=== PATIENT | female | born 1960 | race Caucasian/White ===

== ENCOUNTER 2017-10-30 16:20 | Inpatient (IN) | payer MEDICARE ==
[~2017-10-30] VITALS: Ht 165.1 cm; Wt 84.1 kg
--- NOTE | ~2017-10-30 | EC ---
PATIENT:SHASTA HANSEN DATE OF SERVICE: 10/30/17 SEX: F MEDICAL RECORD: [id number] DATE OF : 58 LOCATION:D. D.213 AGE OF PATIENT: 57 ADMISSION DATE: 10/30/17 REFERRING PHYSICIAN: INTERPRETING PHYSICIAN: JESUS LOPEZ MD ECHOCARDIOGRAM REPORT ECHO CHARGES 4 ECHO COMPLETE Date: 10/31 CLINICAL DIAGNOSIS: CHF ECHOCARDIOGRAPHIC MEASUREMENTS (adult normal given) AC root (d.<3.7cm) 2.8 cm LV Septum d (<1.2 cm> 1.2 cm Valve Excursion 1.7 cm LV Septum (systole) 1.3 cm Left Atria (s.<4.0cm> 3.7 cm LVPW d(<1.2cm) 1.4 cm RV (d.<2.3cm) 4.1 cm LVPW (sytole) 1.6 cm LV diastole(<5.6CM) 4.0 cm MV E-F(>70mm/sec) cm LV systole 3.0 cm LVOT Diameter 1.8 cm MV exc.(>10mm) 1.2 cm Est.ejection fraction (50-75%) % DOPPLER: LVIT cm/sec A 81.0 cm/sec E 67.0 cm/sec LA cm/sec RVSP 27 mmHg LVOT 138 cm/sec AOP1/2T m/s Asc. Ao 191 cm/sec RVOT 117 cm/sec RA cm/sec PA 158 cm/sec AV Gradient Peak 14.65mmHg AV Mean 6.84 mmHg AV Area 1.7 cm MV Gradient Peak 3.11 mmHg MV Mean 1.23 mmHg MV Area cm COMMENTS: Database Security Administrator: Carmencita LEMONS Athletic Equipment Custodian: 1 Dr. Lopez TAPE# PACS Pericardial Effusion N DATE OF SERVICE: 10/31/2017 PROCEDURE: Echocardiogram. FINDINGS: 1. Left ventricular chamber size is within normal limits. Left ventricular systolic function is normal. Overall ejection fraction estimated at 60%. 2. Left atrium, right atrium, right ventricle chamber sizes are within normal limits. Left atrium measures 3.7 cm. 3. Valvular structures have normal structure and motion. ECHOCARDIOGRAM REPORT [id number] SHASTA HANSEN 4. Doppler interrogation reveals mild mitral regurgitation, mild tricuspid regurgitation, no other valvular insufficiency or stenosis. Pulmonary systolic pressure is normal estimated at 27 mmHg. 5. No evidence of pericardial effusion or left ventricular thrombus. TRANSINT:[id number] Voice Confirmation ID: [id number] DOCUMENT ID: [id number] JESUS LOPEZ MD at 1834 CC: [id number] DICTATION DATE: 10/31/17 1406 VENEER MEASURER: 10/31/17 1410 ADM IN [place] [id number] [place] [address]
--- NOTE | ~2017-10-30 | CN ---
PATIENT NAME:SHASTA HANSEN MEDICAL RECORD: [id number] : 58 LOCATION:[facility] D.2136 ADMIT DATE: 10/30/17 ACCOUNT: [id number] CONSULTING PHYSICIAN: ZENY LOPEZ MD REFERRING PHYSICIAN: SUSANNAH HAILE MD DATE OF CONSULTATION: 11/28/2017 IDENTIFYING DATA: The patient is 57 years old, and she is admitted to the hospital secondary to confusion. CHIEF COMPLAINT: None. HISTORY OF PRESENT ILLNESS: The patient has a number of complicated medical problems that include hematochezia, hyponatremia, urinary tract infection, hypokalemia, and anemia. She has been quite confused and has had some behaviors that were atypical, but not threatening, dangerous, or psychotic. She did have confusion consistent with a delirium and that is clearing. The patient tells me that she has lost many relatives to and that she struggled with posttraumatic stress disorder and anxiety for a long time. She has never tried to hurt herself. She has never been hospitalized for psychiatric reasons and she has been in outpatient therapy. She denies a history of substance abuse. MENTAL STATUS EXAMINATION: The patient is awake, alert and oriented to person, place, time and situation. Her mood is anxious. Her affect is constricted. Thought processes are circumstantial. Memory, concentration, and abstraction abilities are moderately impaired. She has no thoughts of harming herself or others and denies psychotic symptoms. ASSESSMENT: 1. Posttraumatic stress disorder. 2. Generalized anxiety disorder. 3. Delirium, resolved. PLAN: At this time, the patient is not showing any acute psychiatric symptoms that would represent a danger to herself or others. She tells me that she does not want any psychiatric medicines or to see another therapist or psychiatrist. I have discussed this with her. I am not sure what her objection is, but that is her feeling at this point and given that she is not out of touch with reality or acutely dangerous, I have no recommendations other than that she be discharged to home once medically stable and I have given her instructions about where to go or who to call if she changes her mind about psychiatric care. TRANSINT:[id number] Voice Confirmation ID: [id number] DOCUMENT ID: [id number] ZENY LOPEZ MD at 1435 CC: [id number] DICTATION DATE: 11/28/17 1329 ACCOUNT RECEIVABLE ASSOCIATE: 11/28/17 1339 DIS IN 11/29/17 [place] [id number] [place] [id number]
[2017-10-30] MEDS ORDERED: VENTOLIN HFA18 GM INH (16:35)
[2017-10-30] MEDS ORDERED: XANAX0.5 MG PO (16:35)
[2017-10-30] MEDS ORDERED: PROTONIX40 MG PO (16:35)
[2017-10-30] MEDS ORDERED: SINGULAIR10 MG PO (16:36)
[2017-10-30] MEDS ORDERED: CARAFATE1 G PO (16:36)
[2017-10-30] MEDS ORDERED: ZANTAC150 MG PO (16:36)
[2017-10-30] MEDS ORDERED: ASCORBIC ACID500 MG PO (16:36)
[2017-10-30] MEDS ORDERED: CALCIUM 600 +1 EAC3 PO (16:37)
[2017-10-30] MEDS ORDERED: VITAMIN B-12500 MC1 PO (16:37)
[2017-10-30] MEDS ORDERED: MAG-OX 400 MG400 MG PO (16:37)
[2017-10-30] MEDS ORDERED: VITAMIN D2000 UNIT PO (16:38)
[2017-10-30] MEDS ORDERED: KRILL OIL 1,001 EAC1 PO (16:38)
[2017-10-30] MEDS ORDERED: VITAMIN E400 UNI2 PO (16:38)
[2017-10-30] MEDS ORDERED: PROBIOTIC1 EAC1 PO (16:39)
[2017-10-30 17:14] LABS: APTT 33.2 SECONDS (22.8-39.4); INR 1.28 (0.85-1.17); PROTIME 15.6 SECONDS (11.6-15.0)
[2017-10-30 17:15] LABS: D-DIMER-QUANTITATIVE 1.77 ug/mLFEU (0.20-0.54)
[2017-10-30 17:18] LABS: BASOPHILS 0.1 % (0-2); EOSINOPHILS 0.6 % (0-7); HEMATOCRIT 30.3 % (36.0-48.0); HEMOGLOBIN 10.6 g/dL (12-16); IMMATURE GRANULOCYTES 2.7 % (0-5); LYMPHOCYTES 17.1 % (15-50); MCH 31.3 pg (26.0-34.0); MCV 89.4 fL (80.0-100.0); MEAN PLATELET VOLUME 8.7 fL (7.4-10.4); MONOCYTES 8.9 % (2-11); NEUTROPHILS 70.6 % (40-80); PLATELET COUNT 346 10x3/uL (130-400); RBC 3.39 10x6/uL (4.00-5.40); RDW 14.4 % (11.5-14.5); WBC 10.6 10x3/uL (4.8-10.8)
[2017-10-30 17:21] LABS: ALBUMIN 1.6 g/dL (3.4-5.0); ALKALINE PHOSPHATASE 86 U/L (46-116); ALT (SGPT) 23 U/L (10-68); CALC OSMOLALITY 246 mosm/kg (275-300); CALCIUM 7.5 mg/dL (8.5-10.1); CARBON DIOXIDE 22.4 mmol/L (21.0-32.0); CHLORIDE - SERUM 92 mmol/L (98-107); GLUCOSE 94 mg/dL (74-106); POTASSIUM - SERUM 3.8 mmol/L (3.5-5.1); PROTEIN - SERUM 5.3 g/dL (6.4-8.2); SODIUM 123 mmol/L (136-145); UREA NITROGEN 11 mg/dL (7-18); eGFR NON AFRICAN AMERICAN 60 mL/min (90-120)
[2017-10-30 17:32] LABS: CREATINE KINASE 86 UL (21-215); PRO BNP 196 pg/mL (0-125)
[2017-10-30 17:34] LABS: TROPONIN-I < 0.017 ng/mL (0.000-0.060)
[2017-10-30 19:18] VITALS: BP 115/52
[2017-10-30 20:31] VITALS: BP 110/59
[2017-10-30 21:31] VITALS: BP 108/61
[2017-10-30 21:34] LABS: APPEARANCE CLOUDY (CLEAR); BILIRUBIN NEGATIVE (NEGATIVE); COLOR YELLOW (YELLOW); GLUCOSE NEGATIVE (NEGATIVE); KETONE NEGATIVE (NEGATIVE); NITRITE POSITIVE (NEGATIVE); PROTEIN TRACE mg/dL (NEGATIVE); UROBILINOGEN NORMAL (NORMAL)
[2017-10-30 21:35] LABS: RED CELLS - URINE 0-5 /hpf (0-5); WHITE CELLS - URINE 0-5 /hpf (0-5)
[2017-10-30 21:36] LABS: BACTERIA MODERATE /hpf (NONE SEEN)
[2017-10-30 22:30] VITALS: BP 98/51
[2017-10-30 22:31] VITALS: BP 118/53
[2017-10-31] VITALS (7 sets, daily range): BP systolic 100–144; BP diastolic 34–72; BMI 37.3; BMI 37.2
[2017-10-31 06:18] LABS: ANION GAP 11.6 mmol/L (8-16); CARBON DIOXIDE 22.7 mmol/L (21.0-32.0); POTASSIUM - SERUM 3.3 mmol/L (3.5-5.1)
[2017-10-31 06:31] LABS: BASOPHILS 0.1 % (0-2); EOSINOPHILS 0.7 % (0-7); HEMATOCRIT 27.8 % (36.0-48.0); HEMOGLOBIN 9.7 g/dL (12-16); IMMATURE GRANULOCYTES 1.8 % (0-5); LYMPHOCYTES 16.9 % (15-50); MCH 31.4 pg (26.0-34.0); MCHC 34.9 g/dL (31.0-37.0); MEAN PLATELET VOLUME 8.9 fL (7.4-10.4); MONOCYTES 10.7 % (2-11); NEUTROPHILS 69.8 % (40-80); PLATELET COUNT 313 10x3/uL (130-400); RBC 3.09 10x6/uL (4.00-5.40); RDW 14.6 % (11.5-14.5); WBC 9.7 10x3/uL (4.8-10.8)
[2017-10-31 10:48] LABS: % SATURATION 23 % (15-55); IRON 17 ug/dl (35-150); TOTAL IRON BIND CAPACITY 71 ug/dl (260-445)
[2017-10-31 10:50] LABS: UNSAT IRON BIND CAPACITY 54 ug/dl (150-375)
[2017-10-31 11:02] LABS: MAGNESIUM - SERUM 1.6 mg/dL (1.8-2.4)
[2017-11-01 05:34] VITALS: BP 110/59
[2017-11-01 05:49] LABS: CARBON DIOXIDE 24.6 mmol/L (21.0-32.0); CREATININE - SERUM 0.9 mg/dL (0.6-1.3)
[2017-11-01 05:59] LABS: BASOPHILS 0.1 % (0-2); EOSINOPHILS 0.6 % (0-7); HEMATOCRIT 28.3 % (36.0-48.0); HEMOGLOBIN 9.9 g/dL (12-16); IMMATURE GRANULOCYTES 4.5 % (0-5); MCH 31.5 pg (26.0-34.0); MCV 90.1 fL (80.0-100.0); MEAN PLATELET VOLUME 8.7 fL (7.4-10.4); MONOCYTES 7.5 % (2-11); NEUTROPHILS 73.3 % (40-80); PLATELET COUNT 291 10x3/uL (130-400); RBC 3.14 10x6/uL (4.00-5.40); RDW 14.8 % (11.5-14.5)
[2017-11-01 06:10] LABS: ANION GAP 9.3 mmol/L (8-16)
[2017-11-01 06:12] LABS: CALCIUM 6.9 mg/dL (8.5-10.1); POTASSIUM - SERUM 2.9 mmol/L (3.5-5.1)
[2017-11-01 08:21] LABS: FOLATE (FOLIC ACID) - SERUM 12.2 ng/mL (>3.0)
[2017-11-01 08:26] VITALS: BP 98/55
[2017-11-01 11:35] VITALS: BP 105/49
[2017-11-01 16:00] VITALS: BP 91/65
[2017-11-01 20:00] VITALS: BP 85/45
[2017-11-02] VITALS: BP 91/38
[2017-11-02 04:00] VITALS: BP 85/61
[2017-11-02 05:47] LABS: BASOPHILS 0.2 % (0-2); EOSINOPHILS 0.5 % (0-7); HEMATOCRIT 25.2 % (36.0-48.0); HEMOGLOBIN 8.5 g/dL (12-16); IMMATURE GRANULOCYTES 2.7 % (0-5); LYMPHOCYTES 15.2 % (15-50); MCH 30.6 pg (26.0-34.0); MCHC 33.7 g/dL (31.0-37.0); MCV 90.6 fL (80.0-100.0); MEAN PLATELET VOLUME 8.5 fL (7.4-10.4); MONOCYTES 6.8 % (2-11); NEUTROPHILS 74.6 % (40-80); RBC 2.78 10x6/uL (4.00-5.40); RDW 14.9 % (11.5-14.5); WBC 6.7 10x3/uL (4.8-10.8)
[2017-11-02 05:49] LABS: PLATELET COUNT 221 10x3/uL (130-400)
[2017-11-02 06:03] LABS: CARBON DIOXIDE 28.4 mmol/L (21.0-32.0); CREATININE - SERUM 0.9 mg/dL (0.6-1.3)
[2017-11-02 06:04] LABS: POTASSIUM - SERUM 2.4 mmol/L (3.5-5.1)
[2017-11-02 06:05] LABS: CALCIUM 6.7 mg/dL (8.5-10.1)
[2017-11-02 08:40] VITALS: BP 96/58
[2017-11-02 11:52] VITALS: BP 97/58
[2017-11-02 15:23] VITALS: BP 92/50
[2017-11-02 16:27] LABS: MAGNESIUM - SERUM 1.5 mg/dL (1.8-2.4)
[2017-11-02 16:39] LABS: POTASSIUM - SERUM 2.7 mmol/L (3.5-5.1)
[2017-11-02 17:30] LABS: CREATININE - URINE 4.9 mg/dL (30-125); PROTEIN - URINE 4.8 mg/dL (0.0-11.9)
[2017-11-02 20:00] VITALS: BP 134/47
[2017-11-03] VITALS: BP 144/56
[2017-11-03 04:00] VITALS: BP 98/54
[2017-11-03 06:15] LABS: BASOPHILS 0.2 % (0-2); EOSINOPHILS 0.8 % (0-7); HEMATOCRIT 24.4 % (36.0-48.0); HEMOGLOBIN 8.4 g/dL (12-16); IMMATURE GRANULOCYTES 2.7 % (0-5); LYMPHOCYTES 18.8 % (15-50); MCH 31.1 pg (26.0-34.0); MCHC 34.4 g/dL (31.0-37.0); MCV 90.4 fL (80.0-100.0); MEAN PLATELET VOLUME 8.5 fL (7.4-10.4); MONOCYTES 6.1 % (2-11); NEUTROPHILS 71.4 % (40-80); RDW 15.1 % (11.5-14.5)
[2017-11-03 06:17] LABS: PLATELET COUNT 160 10x3/uL (130-400); WBC 4.7 10x3/uL (4.8-10.8)
[2017-11-03 06:34] LABS: CALC OSMOLALITY 257 mosm/kg (275-300); CARBON DIOXIDE 29.6 mmol/L (21.0-32.0); CHLORIDE - SERUM 95 mmol/L (98-107); CREATININE - SERUM 0.7 mg/dL (0.6-1.3); GLUCOSE 106 mg/dL (74-106); SODIUM 130 mmol/L (136-145); UREA NITROGEN 4 mg/dL (7-18); eGFR NON AFRICAN AMERICAN > 90 mL/min (90-120)
[2017-11-03 06:39] LABS: CALCIUM 6.7 mg/dL (8.5-10.1); POTASSIUM - SERUM 2.7 mmol/L (3.5-5.1)
[2017-11-03 08:55] VITALS: BP 91/59
[2017-11-03 13:20] VITALS: BP 102/58
[2017-11-03 16:50] VITALS: BP 95/62
[2017-11-03 21:17] VITALS: BP 85/48
[2017-11-04 00:28] VITALS: BP 101/53
[2017-11-04 04:07] VITALS: BP 92/43
[2017-11-04 05:36] LABS: BASOPHILS 0.4 % (0-2); EOSINOPHILS 0.8 % (0-7); HEMATOCRIT 23.8 % (36.0-48.0); HEMOGLOBIN 8.1 g/dL (12-16); IMMATURE GRANULOCYTES 2.3 % (0-5); LYMPHOCYTES 20.5 % (15-50); MCV 91.2 fL (80.0-100.0); MEAN PLATELET VOLUME 8.8 fL (7.4-10.4); MONOCYTES 6.9 % (2-11); NEUTROPHILS 69.1 % (40-80); PLATELET COUNT 148 10x3/uL (130-400); RBC 2.61 10x6/uL (4.00-5.40); RDW 15.2 % (11.5-14.5); WBC 4.8 10x3/uL (4.8-10.8)
[2017-11-04 05:48] LABS: CALC OSMOLALITY 259 mosm/kg (275-300); CARBON DIOXIDE 30.8 mmol/L (21.0-32.0); CHLORIDE - SERUM 95 mmol/L (98-107); CREATININE - SERUM 0.7 mg/dL (0.6-1.3); GLUCOSE 101 mg/dL (74-106); SODIUM 131 mmol/L (136-145); UREA NITROGEN 3 mg/dL (7-18); eGFR NON AFRICAN AMERICAN > 90 mL/min (90-120)
[2017-11-04 05:50] LABS: POTASSIUM - SERUM 2.8 mmol/L (3.5-5.1)
[2017-11-04 07:00] VITALS: BP 97/57
[2017-11-04 18:09] LABS: OVA + PARASITE EXAM Final report (())
[2017-11-04 21:56] VITALS: BP 98/52
[2017-11-05 05:42] VITALS: BP 95/59
[2017-11-05 05:44] LABS: BASOPHILS 0.3 % (0-2); EOSINOPHILS 1.4 % (0-7); HEMATOCRIT 24.7 % (36.0-48.0); HEMOGLOBIN 8.4 g/dL (12-16); IMMATURE GRANULOCYTES 1.4 % (0-5); MCH 31.3 pg (26.0-34.0); MCV 92.2 fL (80.0-100.0); MEAN PLATELET VOLUME 8.7 fL (7.4-10.4); NEUTROPHILS 65.9 % (40-80); PLATELET COUNT 120 10x3/uL (130-400); RBC 2.68 10x6/uL (4.00-5.40); RDW 15.5 % (11.5-14.5); WBC 5.8 10x3/uL (4.8-10.8)
[2017-11-05 06:01] LABS: CALC OSMOLALITY 259 mosm/kg (275-300); CALCIUM 7.1 mg/dL (8.5-10.1); CARBON DIOXIDE 29.9 mmol/L (21.0-32.0); CHLORIDE - SERUM 98 mmol/L (98-107); CREATININE - SERUM 0.7 mg/dL (0.6-1.3); GLUCOSE 99 mg/dL (74-106); SODIUM 131 mmol/L (136-145); UREA NITROGEN 3 mg/dL (7-18); eGFR NON AFRICAN AMERICAN > 90 mL/min (90-120)
[2017-11-05 06:12] LABS: POTASSIUM - SERUM 3.6 mmol/L (3.5-5.1)
[2017-11-05 08:47] VITALS: BP 102/65
[2017-11-05 11:26] VITALS: BP 85/56
[2017-11-05 15:10] VITALS: BP 100/58
[2017-11-05 20:00] VITALS: BP 102/57
[2017-11-06] VITALS: BP 88/50
[2017-11-06 04:00] VITALS: BP 117/90
[2017-11-06 09:34] VITALS: BP 99/45
[2017-11-06 10:03] LABS: BASOPHILS 0.7 % (0-2); EOSINOPHILS 1.3 % (0-7); HEMATOCRIT 24.7 % (36.0-48.0); HEMOGLOBIN 8.3 g/dL (12-16); IMMATURE GRANULOCYTES 1.8 % (0-5); LYMPHOCYTES 34.2 % (15-50); MCH 31.4 pg (26.0-34.0); MCHC 33.6 g/dL (31.0-37.0); MCV 93.6 fL (80.0-100.0); MEAN PLATELET VOLUME 8.7 fL (7.4-10.4); MONOCYTES 8.4 % (2-11); NEUTROPHILS 53.6 % (40-80); PLATELET COUNT 117 10x3/uL (130-400); RBC 2.64 10x6/uL (4.00-5.40); RDW 15.5 % (11.5-14.5); WBC 5.5 10x3/uL (4.8-10.8)
[2017-11-06 10:18] LABS: ANION GAP 6.6 mmol/L (8-16); BILIRUBIN - TOTAL 0.32 mg/dL (0.2-1.3); CALCIUM 7.1 mg/dL (8.5-10.1); CARBON DIOXIDE 32.9 mmol/L (21.0-32.0); PROTEIN - SERUM 4.9 g/dL (6.4-8.2)
[2017-11-06 10:33] LABS: POTASSIUM - SERUM 2.5 mmol/L (3.5-5.1)
[2017-11-06 12:55] VITALS: BP 93/55
[2017-11-06 17:51] VITALS: BP 100/53
[2017-11-06 20:37] VITALS: BP 91/42
[2017-11-07 00:16] VITALS: BP 90/69
[2017-11-07 05:37] VITALS: BP 91/49
[2017-11-07 06:12] LABS: BASOPHILS 0.3 % (0-2); EOSINOPHILS 1.5 % (0-7); HEMATOCRIT 26.1 % (36.0-48.0); HEMOGLOBIN 8.6 g/dL (12-16); IMMATURE GRANULOCYTES 1.8 % (0-5); LYMPHOCYTES 34.5 % (15-50); MCH 30.9 pg (26.0-34.0); MCV 93.9 fL (80.0-100.0); MEAN PLATELET VOLUME 8.9 fL (7.4-10.4); MONOCYTES 7.8 % (2-11); NEUTROPHILS 54.1 % (40-80); RBC 2.78 10x6/uL (4.00-5.40); RDW 15.8 % (11.5-14.5); WBC 6.6 10x3/uL (4.8-10.8)
[2017-11-07 06:21] LABS: PLATELET COUNT 146 10x3/uL (130-400)
[2017-11-07 06:32] LABS: ALBUMIN 2.2 g/dL (3.4-5.0); ALKALINE PHOSPHATASE 191 U/L (46-116); ALT (SGPT) 11 U/L (10-68); BILIRUBIN - TOTAL 0.34 mg/dL (0.2-1.3); CALC OSMOLALITY 260 mosm/kg (275-300); CALCIUM 7.6 mg/dL (8.5-10.1); CARBON DIOXIDE 34.8 mmol/L (21.0-32.0); CHLORIDE - SERUM 96 mmol/L (98-107); GLUCOSE 104 mg/dL (74-106); PROTEIN - SERUM 5.1 g/dL (6.4-8.2); SODIUM 131 mmol/L (136-145); UREA NITROGEN 6 mg/dL (7-18)
[2017-11-07 06:34] LABS: CREATININE - SERUM 0.7 mg/dL (0.6-1.3); eGFR NON AFRICAN AMERICAN > 90 mL/min (90-120)
[2017-11-07 15:24] LABS: OVA + PARASITE EXAM Final report (())
[2017-11-07 15:24] LABS: OVA + PARASITE EXAM Final report (())
[2017-11-07 16:48] VITALS: BP 94/53
[2017-11-07 20:42] VITALS: BP 75/52
[2017-11-08] VITALS (7 sets, daily range): BP systolic 82–111; BP diastolic 46–67
[2017-11-08 05:38] LABS: BASOPHILS 0.7 % (0-2); EOSINOPHILS 4.1 % (0-7); LYMPHOCYTES 43.2 % (15-50); MCH 31.4 pg (26.0-34.0); MCHC 33.3 g/dL (31.0-37.0); MCV 94.2 fL (80.0-100.0); MEAN PLATELET VOLUME 8.7 fL (7.4-10.4); MONOCYTES 10.2 % (2-11); NEUTROPHILS 39.8 % (40-80); PLATELET COUNT 141 10x3/uL (130-400); RBC 2.23 10x6/uL (4.00-5.40); RDW 16.3 % (11.5-14.5)
[2017-11-08 05:43] LABS: WBC 4.6 10x3/uL (4.8-10.8)
[2017-11-08 06:14] LABS: ALBUMIN 1.7 g/dL (3.4-5.0); ALKALINE PHOSPHATASE 145 U/L (46-116); BILIRUBIN - TOTAL 0.24 mg/dL (0.2-1.3); CALCIUM 7.4 mg/dL (8.5-10.1); CARBON DIOXIDE 37.2 mmol/L (21.0-32.0); CHLORIDE - SERUM 100 mmol/L (98-107); CREATININE - SERUM 0.7 mg/dL (0.6-1.3); GLUCOSE 98 mg/dL (74-106); PROTEIN - SERUM 4.4 g/dL (6.4-8.2); SODIUM 134 mmol/L (136-145); eGFR NON AFRICAN AMERICAN > 90 mL/min (90-120)
[2017-11-08 06:15] LABS: ALT (SGPT) 5 U/L (10-68); CALC OSMOLALITY 265 mosm/kg (275-300); POTASSIUM - SERUM 3.3 mmol/L (3.5-5.1); UREA NITROGEN 8 mg/dL (7-18)
[2017-11-08 07:54] LABS: % SATURATION 47 % (15-55); IRON 28 ug/dl (35-150); TOTAL IRON BIND CAPACITY 59 ug/dl (260-445)
[2017-11-08 07:59] LABS: UNSAT IRON BIND CAPACITY 31 ug/dl (150-375)
[2017-11-08 08:06] LABS: ALBUMIN 1.7 g/dL (3.4-5.0); BILIRUBIN - DIRECT 0.06 mg/dL (0.00-0.30); BILIRUBIN - INDIRECT 0.15 mg/dL (0.00-1.00); BILIRUBIN - TOTAL 0.21 mg/dL (0.2-1.3); PROTEIN - SERUM 4.4 g/dL (6.4-8.2)
[2017-11-09 05:45] LABS: BASOPHILS 0.9 % (0-2); EOSINOPHILS 3.3 % (0-7); HEMATOCRIT 24.4 % (36.0-48.0); HEMOGLOBIN 7.9 g/dL (12-16); IMMATURE GRANULOCYTES 3.3 % (0-5); LYMPHOCYTES 43.8 % (15-50); MCH 30.4 pg (26.0-34.0); MCHC 32.4 g/dL (31.0-37.0); MCV 93.8 fL (80.0-100.0); NEUTROPHILS 36.7 % (40-80); PLATELET COUNT 156 10x3/uL (130-400); RDW 17.1 % (11.5-14.5); WBC 5.7 10x3/uL (4.8-10.8)
[2017-11-09 06:15] LABS: ALKALINE PHOSPHATASE 129 U/L (46-116); BILIRUBIN - TOTAL 0.33 mg/dL (0.2-1.3); CALC OSMOLALITY 264 mosm/kg (275-300); CALCIUM 7.3 mg/dL (8.5-10.1); CARBON DIOXIDE 34.4 mmol/L (21.0-32.0); CHLORIDE - SERUM 99 mmol/L (98-107); CREATININE - SERUM 0.7 mg/dL (0.6-1.3); GLUCOSE 92 mg/dL (74-106); PROTEIN - SERUM 4.4 g/dL (6.4-8.2); SODIUM 133 mmol/L (136-145); UREA NITROGEN 9 mg/dL (7-18); eGFR NON AFRICAN AMERICAN > 90 mL/min (90-120)
[2017-11-09 06:16] LABS: ALT (SGPT) 13 U/L (10-68)
[2017-11-09 06:30] VITALS: BP 104/60
[2017-11-09 07:23] LABS: FOLATE (FOLIC ACID) - SERUM 7.8 ng/mL (>3.0)
[2017-11-09 07:32] LABS: INR 1.32 (0.85-1.17); PROTIME 15.9 SECONDS (11.6-15.0)
[2017-11-09 09:15] VITALS: BP 99/58
[2017-11-09 17:00] VITALS: BP 85/60
[2017-11-09 20:27] VITALS: BP 83/49
[2017-11-10 05:47] VITALS: BP 79/52
[2017-11-10 06:00] LABS: BASOPHILS 0.4 % (0-2); HEMATOCRIT 28.3 % (36.0-48.0); HEMOGLOBIN 9.2 g/dL (12-16); IMMATURE GRANULOCYTES 2.9 % (0-5); LYMPHOCYTES 42.2 % (15-50); MCH 30.6 pg (26.0-34.0); MCHC 32.5 g/dL (31.0-37.0); MEAN PLATELET VOLUME 8.7 fL (7.4-10.4); MONOCYTES 11.7 % (2-11); NEUTROPHILS 39.8 % (40-80); PLATELET COUNT 199 10x3/uL (130-400); RBC 3.01 10x6/uL (4.00-5.40); RDW 17.4 % (11.5-14.5); WBC 7.9 10x3/uL (4.8-10.8)
[2017-11-10 06:14] LABS: ALBUMIN 2.3 g/dL (3.4-5.0); ALKALINE PHOSPHATASE 125 U/L (46-116); ALT (SGPT) 10 U/L (10-68); BILIRUBIN - TOTAL 0.37 mg/dL (0.2-1.3); CALC OSMOLALITY 261 mosm/kg (275-300); CALCIUM 7.6 mg/dL (8.5-10.1); CARBON DIOXIDE 34.9 mmol/L (21.0-32.0); CHLORIDE - SERUM 96 mmol/L (98-107); CREATININE - SERUM 0.7 mg/dL (0.6-1.3); GLUCOSE 101 mg/dL (74-106); POTASSIUM - SERUM 3.7 mmol/L (3.5-5.1); SODIUM 131 mmol/L (136-145); UREA NITROGEN 10 mg/dL (7-18); eGFR NON AFRICAN AMERICAN > 90 mL/min (90-120)
[2017-11-10 06:17] LABS: PROTEIN - SERUM 5.7 g/dL (6.4-8.2)
[2017-11-10 08:51] VITALS: BP 93/52
[2017-11-10 12:20] VITALS: BP 98/56
[2017-11-10 16:55] VITALS: BP 95/55
[2017-11-10 20:00] VITALS: BP 99/52
[2017-11-11] VITALS: BP 92/64
[2017-11-11 04:00] VITALS: BP 101/69
[2017-11-11 04:06] LABS: BASOPHILS 0.4 % (0-2); EOSINOPHILS 1.9 % (0-7); HEMATOCRIT 27.2 % (36.0-48.0); HEMOGLOBIN 8.9 g/dL (12-16); IMMATURE GRANULOCYTES 3.7 % (0-5); LYMPHOCYTES 33.9 % (15-50); MCH 30.6 pg (26.0-34.0); MCHC 32.7 g/dL (31.0-37.0); MCV 93.5 fL (80.0-100.0); MEAN PLATELET VOLUME 8.6 fL (7.4-10.4); NEUTROPHILS 46.1 % (40-80); PLATELET COUNT 218 10x3/uL (130-400); RBC 2.91 10x6/uL (4.00-5.40); RDW 17.3 % (11.5-14.5); WBC 6.8 10x3/uL (4.8-10.8)
[2017-11-11 04:24] LABS: INR 1.32 (0.85-1.17)
[2017-11-11 04:35] LABS: ALBUMIN 2.5 g/dL (3.4-5.0); ALKALINE PHOSPHATASE 204 U/L (46-116); ALT (SGPT) 10 U/L (10-68); BILIRUBIN - TOTAL 0.55 mg/dL (0.2-1.3); CALC OSMOLALITY 259 mosm/kg (275-300); CALCIUM 7.2 mg/dL (8.5-10.1); CARBON DIOXIDE 33.8 mmol/L (21.0-32.0); CHLORIDE - SERUM 93 mmol/L (98-107); CREATININE - SERUM 0.7 mg/dL (0.6-1.3); GLUCOSE 103 mg/dL (74-106); POTASSIUM - SERUM 3.4 mmol/L (3.5-5.1); SODIUM 130 mmol/L (136-145); UREA NITROGEN 10 mg/dL (7-18); eGFR NON AFRICAN AMERICAN > 90 mL/min (90-120)
[2017-11-11 08:00] VITALS: BP 111/55
[2017-11-11 11:01] VITALS: BP 84/54
[2017-11-11 15:29] VITALS: BP 91/40
[2017-11-11 16:00] VITALS: BP 96/59
[2017-11-12] VITALS: BP 110/40
[2017-11-12 02:59] LABS: BASOPHILS 0.4 % (0-2); EOSINOPHILS 1.5 % (0-7); HEMATOCRIT 24.3 % (36.0-48.0); HEMOGLOBIN 8.1 g/dL (12-16); IMMATURE GRANULOCYTES 3.6 % (0-5); LYMPHOCYTES 36.3 % (15-50); MCH 31.3 pg (26.0-34.0); MCHC 33.3 g/dL (31.0-37.0); MCV 93.8 fL (80.0-100.0); MEAN PLATELET VOLUME 8.2 fL (7.4-10.4); MONOCYTES 11.9 % (2-11); NEUTROPHILS 46.3 % (40-80); PLATELET COUNT 160 10x3/uL (130-400); RBC 2.59 10x6/uL (4.00-5.40); RDW 17.5 % (11.5-14.5); WBC 4.7 10x3/uL (4.8-10.8)
[2017-11-12 03:18] LABS: C-REACTIVE PROTEIN 6.5 mg/dL (0.0-0.9); CARBON DIOXIDE 37.5 mmol/L (21.0-32.0); CHLORIDE - SERUM 99 mmol/L (98-107); CREATININE - SERUM 0.7 mg/dL (0.6-1.3); GLUCOSE 100 mg/dL (74-106); SODIUM 134 mmol/L (136-145); eGFR NON AFRICAN AMERICAN > 90 mL/min (90-120)
[2017-11-12 03:20] LABS: CALC OSMOLALITY 265 mosm/kg (275-300); CALCIUM 6.9 mg/dL (8.5-10.1); POTASSIUM - SERUM 2.9 mmol/L (3.5-5.1); UREA NITROGEN 7 mg/dL (7-18)
[2017-11-12 04:06] LABS: ERYTHROCYTE SEDIMENTATION RATE 25 mm/hr (0-30)
[2017-11-12 04:33] VITALS: BP 108/40
[2017-11-12 07:54] VITALS: BP 95/54
[2017-11-12 16:28] VITALS: BP 90/55
[2017-11-12 20:00] VITALS: BP 112/60
[2017-11-13 03:09] LABS: BASOPHILS 0.5 % (0-2); EOSINOPHILS 1.3 % (0-7); HEMATOCRIT 26.8 % (36.0-48.0); HEMOGLOBIN 8.7 g/dL (12-16); IMMATURE GRANULOCYTES 3.2 % (0-5); LYMPHOCYTES 39.9 % (15-50); MCHC 32.5 g/dL (31.0-37.0); MCV 95.4 fL (80.0-100.0); MEAN PLATELET VOLUME 8.3 fL (7.4-10.4); MONOCYTES 11.6 % (2-11); NEUTROPHILS 43.5 % (40-80); PLATELET COUNT 299 10x3/uL (130-400); RBC 2.81 10x6/uL (4.00-5.40); WBC 7.4 10x3/uL (4.8-10.8)
[2017-11-13 03:13] LABS: CALC OSMOLALITY 269 mosm/kg (275-300); CALCIUM 7.4 mg/dL (8.5-10.1); CARBON DIOXIDE 34.9 mmol/L (21.0-32.0); CHLORIDE - SERUM 98 mmol/L (98-107); CREATININE - SERUM 0.7 mg/dL (0.6-1.3); GLUCOSE 96 mg/dL (74-106); SODIUM 136 mmol/L (136-145); UREA NITROGEN 6 mg/dL (7-18); eGFR NON AFRICAN AMERICAN > 90 mL/min (90-120)
[2017-11-13 03:17] LABS: POTASSIUM - SERUM 3.5 mmol/L (3.5-5.1)
[2017-11-13 04:00] VITALS: BP 110/54
[2017-11-13 08:51] VITALS: BP 100/70
[2017-11-13 11:32] VITALS: BP 95/60
[2017-11-13 16:03] VITALS: BP 97/58
[2017-11-13 20:00] VITALS: BP 120/66
[2017-11-14 04:00] VITALS: BP 112/60
[2017-11-14 06:38] LABS: BASOPHILS 0.3 % (0-2); EOSINOPHILS 0.3 % (0-7); HEMATOCRIT 23.4 % (36.0-48.0); HEMOGLOBIN 7.6 g/dL (12-16); LYMPHOCYTES 36.4 % (15-50); MCHC 32.5 g/dL (31.0-37.0); MCV 95.5 fL (80.0-100.0); MEAN PLATELET VOLUME 8.4 fL (7.4-10.4); MONOCYTES 7.3 % (2-11); NEUTROPHILS 52.7 % (40-80); PLATELET COUNT 270 10x3/uL (130-400); RBC 2.45 10x6/uL (4.00-5.40); RDW 17.9 % (11.5-14.5)
[2017-11-14 06:39] LABS: WBC 3.7 10x3/uL (4.8-10.8)
[2017-11-14 06:47] LABS: CALC OSMOLALITY 278 mosm/kg (275-300); CALCIUM 7.5 mg/dL (8.5-10.1); CARBON DIOXIDE 33.7 mmol/L (21.0-32.0); CHLORIDE - SERUM 102 mmol/L (98-107); CREATININE - SERUM 0.6 mg/dL (0.6-1.3); GLUCOSE 129 mg/dL (74-106); SODIUM 140 mmol/L (136-145); UREA NITROGEN 7 mg/dL (7-18); eGFR NON AFRICAN AMERICAN > 90 mL/min (90-120)
[2017-11-14 07:18] LABS: POTASSIUM - SERUM 2.9 mmol/L (3.5-5.1)
[2017-11-14 08:13] VITALS: BP 89/41
[2017-11-14 11:52] VITALS: BP 115/76
[2017-11-14 12:52] LABS: APPEARANCE HAZY (CLEAR); COLOR YELLOW (YELLOW); NITRITE NEGATIVE (NEGATIVE)
[2017-11-14 12:53] LABS: BILIRUBIN NEGATIVE (NEGATIVE); GLUCOSE NEGATIVE (NEGATIVE); KETONE NEGATIVE (NEGATIVE); PROTEIN NEGATIVE (NEGATIVE); UROBILINOGEN NORMAL (NORMAL)
[2017-11-14 13:00] LABS: BACTERIA FEW /hpf (NONE SEEN); MUCUS <1+ /lpf (NONE SEEN); WHITE CELLS - URINE 0-5 /hpf (0-5)
[2017-11-14 16:29] VITALS: BP 123/60
[2017-11-14 22:28] VITALS: BP 115/55
[2017-11-15 00:41] VITALS: BP 117/67
[2017-11-15 05:44] VITALS: BP 101/46
[2017-11-15 08:16] LABS: BASOPHILS 0.2 % (0-2); EOSINOPHILS 0 % (0-7); HEMOGLOBIN 9.8 g/dL (12-16); IMMATURE GRANULOCYTES 5.5 % (0-5); LYMPHOCYTES 25.2 % (15-50); MCH 30.2 pg (26.0-34.0); MCHC 32.5 g/dL (31.0-37.0); MEAN PLATELET VOLUME 8.1 fL (7.4-10.4); MONOCYTES 8.8 % (2-11); NEUTROPHILS 60.3 % (40-80); PLATELET COUNT 280 10x3/uL (130-400); RBC 3.25 10x6/uL (4.00-5.40); RDW 18.4 % (11.5-14.5); WBC 4.9 10x3/uL (4.8-10.8)
[2017-11-15 08:17] LABS: HEMATOCRIT 30.2 % (36.0-48.0); MCV 92.9 fL (80.0-100.0)
[2017-11-15 08:32] LABS: CALC OSMOLALITY 275 mosm/kg (275-300); CARBON DIOXIDE 30.9 mmol/L (21.0-32.0); CHLORIDE - SERUM 105 mmol/L (98-107); CREATININE - SERUM 0.6 mg/dL (0.6-1.3); GLUCOSE 102 mg/dL (74-106); POTASSIUM - SERUM 3.9 mmol/L (3.5-5.1); SODIUM 139 mmol/L (136-145); UREA NITROGEN 6 mg/dL (7-18); eGFR NON AFRICAN AMERICAN > 90 mL/min (90-120)
[2017-11-15 08:50] VITALS: BP 127/53
[2017-11-15 13:04] VITALS: BP 117/72
[2017-11-15 14:30] LABS: MAGNESIUM - SERUM 2.2 mg/dL (1.8-2.4); PHOSPHOROUS 1.6 mg/dL (2.5-4.9)
[2017-11-15 16:55] VITALS: BP 113/63
[2017-11-15 21:22] VITALS: BP 116/70
[2017-11-15 22:46] VITALS: Ht 165.1 cm; Wt 84.1 kg
[2017-11-16 01:07] VITALS: BP 125/56
[2017-11-16 05:13] VITALS: BP 117/62
[2017-11-16 06:22] LABS: BASOPHILS 0.3 % (0-2); EOSINOPHILS 0 % (0-7); HEMATOCRIT 29.9 % (36.0-48.0); HEMOGLOBIN 9.6 g/dL (12-16); IMMATURE GRANULOCYTES 3.8 % (0-5); LYMPHOCYTES 18.5 % (15-50); MCH 30.2 pg (26.0-34.0); MCHC 32.1 g/dL (31.0-37.0); MONOCYTES 7.2 % (2-11); NEUTROPHILS 70.2 % (40-80); PLATELET COUNT 272 10x3/uL (130-400); RBC 3.18 10x6/uL (4.00-5.40); RDW 18.2 % (11.5-14.5); WBC 5.8 10x3/uL (4.8-10.8)
[2017-11-16 06:59] LABS: CALC OSMOLALITY 279 mosm/kg (275-300); CALCIUM 8.1 mg/dL (8.5-10.1); CARBON DIOXIDE 29.8 mmol/L (21.0-32.0); CHLORIDE - SERUM 105 mmol/L (98-107); CREATININE - SERUM 0.7 mg/dL (0.6-1.3); MAGNESIUM - SERUM 2.1 mg/dL (1.8-2.4); POTASSIUM - SERUM 3.5 mmol/L (3.5-5.1); SODIUM 140 mmol/L (136-145); UREA NITROGEN 7 mg/dL (7-18); eGFR NON AFRICAN AMERICAN > 90 mL/min (90-120)
[2017-11-16 07:03] LABS: GLUCOSE 156 mg/dL (74-106); PHOSPHOROUS 2.5 mg/dL (2.5-4.9)
[2017-11-16 09:45] VITALS: BP 127/76
[2017-11-16 12:52] VITALS: BP 119/65
[2017-11-16 16:40] VITALS: BP 140/70
[2017-11-16 21:20] VITALS: BP 114/80
[2017-11-17 02:00] VITALS: BP 136/71
[2017-11-17 05:57] LABS: BASOPHILS 0.3 % (0-2); EOSINOPHILS 0 % (0-7); HEMATOCRIT 33.6 % (36.0-48.0); HEMOGLOBIN 10.8 g/dL (12-16); IMMATURE GRANULOCYTES 3.7 % (0-5); LYMPHOCYTES 20.4 % (15-50); MCH 30.4 pg (26.0-34.0); MCHC 32.1 g/dL (31.0-37.0); MCV 94.6 fL (80.0-100.0); MEAN PLATELET VOLUME 8.2 fL (7.4-10.4); NEUTROPHILS 68.6 % (40-80); PLATELET COUNT 298 10x3/uL (130-400); RBC 3.55 10x6/uL (4.00-5.40); RDW 17.7 % (11.5-14.5)
[2017-11-17 06:00] VITALS: BP 135/72
[2017-11-17 06:03] LABS: WBC 7.5 10x3/uL (4.8-10.8)
[2017-11-17 06:26] LABS: CALC OSMOLALITY 279 mosm/kg (275-300); CALCIUM 8.4 mg/dL (8.5-10.1); CARBON DIOXIDE 30.5 mmol/L (21.0-32.0); CHLORIDE - SERUM 105 mmol/L (98-107); CREATININE - SERUM 0.8 mg/dL (0.6-1.3); GLUCOSE 152 mg/dL (74-106); MAGNESIUM - SERUM 2.1 mg/dL (1.8-2.4); POTASSIUM - SERUM 3.8 mmol/L (3.5-5.1); SODIUM 140 mmol/L (136-145); UREA NITROGEN 8 mg/dL (7-18); eGFR NON AFRICAN AMERICAN 78 mL/min (90-120)
[2017-11-17 08:00] VITALS: BP 110/69
[2017-11-17 17:16] VITALS: BP 133/74
[2017-11-17 20:00] VITALS: BP 125/80
[2017-11-17 21:43] LABS: HEMATOCRIT 32.7 % (36.0-48.0); HEMOGLOBIN 10.6 g/dL (12-16)
[2017-11-18] VITALS (7 sets, daily range): BP systolic 102–157; BP diastolic 49–94
[2017-11-18 05:49] LABS: BASOPHILS 0.3 % (0-2); EOSINOPHILS 0 % (0-7); HEMATOCRIT 31.9 % (36.0-48.0); HEMOGLOBIN 10.3 g/dL (12-16); IMMATURE GRANULOCYTES 2.6 % (0-5); LYMPHOCYTES 21.2 % (15-50); MCH 30.4 pg (26.0-34.0); MCHC 32.3 g/dL (31.0-37.0); MCV 94.1 fL (80.0-100.0); MEAN PLATELET VOLUME 8.3 fL (7.4-10.4); MONOCYTES 6.7 % (2-11); NEUTROPHILS 69.2 % (40-80); PLATELET COUNT 288 10x3/uL (130-400); RBC 3.39 10x6/uL (4.00-5.40); RDW 17.5 % (11.5-14.5); WBC 7.4 10x3/uL (4.8-10.8)
[2017-11-18 06:08] LABS: CALC OSMOLALITY 282 mosm/kg (275-300); CALCIUM 8.5 mg/dL (8.5-10.1); CARBON DIOXIDE 29.5 mmol/L (21.0-32.0); CHLORIDE - SERUM 106 mmol/L (98-107); CREATININE - SERUM 0.7 mg/dL (0.6-1.3); GLUCOSE 156 mg/dL (74-106); MAGNESIUM - SERUM 2.2 mg/dL (1.8-2.4); PHOSPHOROUS 3.2 mg/dL (2.5-4.9); POTASSIUM - SERUM 3.7 mmol/L (3.5-5.1); SODIUM 141 mmol/L (136-145); UREA NITROGEN 10 mg/dL (7-18); eGFR NON AFRICAN AMERICAN > 90 mL/min (90-120)
[2017-11-19 04:00] VITALS: BP 126/88
[2017-11-19 05:44] LABS: BASOPHILS 0.2 % (0-2); EOSINOPHILS 0.1 % (0-7); HEMATOCRIT 36.9 % (36.0-48.0); HEMOGLOBIN 12.1 g/dL (12-16); IMMATURE GRANULOCYTES 2.3 % (0-5); LYMPHOCYTES 19.2 % (15-50); MCHC 32.8 g/dL (31.0-37.0); MCV 94.6 fL (80.0-100.0); MEAN PLATELET VOLUME 8.9 fL (7.4-10.4); MONOCYTES 4.5 % (2-11); NEUTROPHILS 73.7 % (40-80); RDW 17.4 % (11.5-14.5); WBC 8.4 10x3/uL (4.8-10.8)
[2017-11-19 05:52] LABS: PLATELET COUNT 346 10x3/uL (130-400)
[2017-11-19 06:06] LABS: ANION GAP 13.2 mmol/L (8-16); CALCIUM 8.5 mg/dL (8.5-10.1); CARBON DIOXIDE 28.1 mmol/L (21.0-32.0); MAGNESIUM - SERUM 2.1 mg/dL (1.8-2.4); POTASSIUM - SERUM 3.3 mmol/L (3.5-5.1)
[2017-11-19 06:07] LABS: CREATININE - SERUM 0.9 mg/dL (0.6-1.3); PHOSPHOROUS 4.3 mg/dL (2.5-4.9)
[2017-11-19 08:08] VITALS: BP 121/78
[2017-11-19 11:00] VITALS: BP 92/60
[2017-11-19 15:50] VITALS: BP 123/69
[2017-11-19 20:14] VITALS: BP 98/62
[2017-11-20 00:19] VITALS: BP 96/72
[2017-11-20 04:00] VITALS: BP 109/74
[2017-11-20 05:57] LABS: BASOPHILS 0.2 % (0-2); EOSINOPHILS 0.1 % (0-7); HEMATOCRIT 35.3 % (36.0-48.0); HEMOGLOBIN 11.5 g/dL (12-16); IMMATURE GRANULOCYTES 1.8 % (0-5); LYMPHOCYTES 24.3 % (15-50); MCH 30.8 pg (26.0-34.0); MCHC 32.6 g/dL (31.0-37.0); MCV 94.6 fL (80.0-100.0); MEAN PLATELET VOLUME 8.9 fL (7.4-10.4); MONOCYTES 5.7 % (2-11); NEUTROPHILS 67.9 % (40-80); PLATELET COUNT 318 10x3/uL (130-400); RBC 3.73 10x6/uL (4.00-5.40); RDW 16.8 % (11.5-14.5); WBC 9.7 10x3/uL (4.8-10.8)
[2017-11-20 06:29] LABS: ALBUMIN 3.5 g/dL (3.4-5.0); ALKALINE PHOSPHATASE 165 U/L (46-116); ALT (SGPT) 22 U/L (10-68); BILIRUBIN - TOTAL 0.28 mg/dL (0.2-1.3); CALCIUM 8.3 mg/dL (8.5-10.1); CARBON DIOXIDE 27.7 mmol/L (21.0-32.0); CHLORIDE - SERUM 103 mmol/L (98-107); CREATININE - SERUM 0.8 mg/dL (0.6-1.3); MAGNESIUM - SERUM 2.3 mg/dL (1.8-2.4); POTASSIUM - SERUM 3.2 mmol/L (3.5-5.1); PROTEIN - SERUM 6.5 g/dL (6.4-8.2); SODIUM 139 mmol/L (136-145); eGFR NON AFRICAN AMERICAN 78 mL/min (90-120)
[2017-11-20 06:34] LABS: CALC OSMOLALITY 279 mosm/kg (275-300); GLUCOSE 122 mg/dL (74-106); UREA NITROGEN 15 mg/dL (7-18)
[2017-11-20 07:50] VITALS: BP 105/62
[2017-11-20 08:00] VITALS: BP 96/63
[2017-11-20 10:50] VITALS: BP 82/59
[2017-11-20 15:11] VITALS: BP 95/57
[2017-11-21] VITALS: BP 103/64
[2017-11-21 04:00] VITALS: BP 94/64
[2017-11-21 07:01] LABS: BASOPHILS 0.2 % (0-2); EOSINOPHILS 0.1 % (0-7); HEMATOCRIT 36.3 % (36.0-48.0); HEMOGLOBIN 11.8 g/dL (12-16); IMMATURE GRANULOCYTES 2.5 % (0-5); LYMPHOCYTES 15.8 % (15-50); MCH 30.7 pg (26.0-34.0); MCHC 32.5 g/dL (31.0-37.0); MCV 94.5 fL (80.0-100.0); MEAN PLATELET VOLUME 9.1 fL (7.4-10.4); MONOCYTES 4.6 % (2-11); NEUTROPHILS 76.8 % (40-80); PLATELET COUNT 331 10x3/uL (130-400); RBC 3.84 10x6/uL (4.00-5.40); RDW 16.7 % (11.5-14.5); WBC 10.6 10x3/uL (4.8-10.8)
[2017-11-21 07:08] LABS: ALBUMIN 3.9 g/dL (3.4-5.0); ANION GAP 12.3 mmol/L (8-16); BILIRUBIN - TOTAL 0.33 mg/dL (0.2-1.3); CALCIUM 8.6 mg/dL (8.5-10.1); CARBON DIOXIDE 26.3 mmol/L (21.0-32.0); CREATININE - SERUM 0.9 mg/dL (0.6-1.3); MAGNESIUM - SERUM 2.4 mg/dL (1.8-2.4); PHOSPHOROUS 4.4 mg/dL (2.5-4.9)
[2017-11-21 07:10] LABS: POTASSIUM - SERUM 4.6 mmol/L (3.5-5.1)
[2017-11-21 07:46] VITALS: BP 122/59
[2017-11-21 11:26] VITALS: BP 95/61
[2017-11-21 15:13] VITALS: BP 107/65
[2017-11-21 20:41] VITALS: BP 135/63
[2017-11-22 04:56] VITALS: BP 106/60
[2017-11-22 07:22] LABS: ALBUMIN 3.8 g/dL (3.4-5.0); BILIRUBIN - TOTAL 0.4 mg/dL (0.2-1.3); CALCIUM 8.7 mg/dL (8.5-10.1); CARBON DIOXIDE 30.2 mmol/L (21.0-32.0); CREATININE - SERUM 0.9 mg/dL (0.6-1.3); MAGNESIUM - SERUM 2.2 mg/dL (1.8-2.4); PHOSPHOROUS 3.5 mg/dL (2.5-4.9)
[2017-11-22 07:23] LABS: ANION GAP 10.4 mmol/L (8-16); POTASSIUM - SERUM 3.6 mmol/L (3.5-5.1)
[2017-11-22 09:23] VITALS: BP 101/52
[2017-11-22 10:27] LABS: HEMATOCRIT 35.1 % (36.0-48.0); LYMPHOCYTES 21.4 % (15-50); MCH 31.6 pg (26.0-34.0); MCHC 34.2 g/dL (31.0-37.0); MEAN PLATELET VOLUME 8.6 fL (7.4-10.4); NEUTROPHILS 73.8 % (40-80); PLATELET COUNT 342 10x3/uL (130-400); RDW 15.9 % (11.5-14.5)
[2017-11-22 10:28] LABS: MCV 92.4 fL (80.0-100.0); WBC 7.4 10x3/uL (4.8-10.8)
[2017-11-22 13:26] VITALS: BP 105/67
[2017-11-22 18:00] VITALS: BP 103/54
[2017-11-22 20:00] VITALS: BP 85/43
[2017-11-23 04:00] VITALS: BP 101/51
[2017-11-23 05:20] LABS: BASOPHILS 0.1 % (0-2); EOSINOPHILS 0.2 % (0-7); HEMATOCRIT 38.9 % (36.0-48.0); HEMOGLOBIN 12.5 g/dL (12-16); IMMATURE GRANULOCYTES 1.3 % (0-5); LYMPHOCYTES 20.1 % (15-50); MCH 30.5 pg (26.0-34.0); MCHC 32.1 g/dL (31.0-37.0); MEAN PLATELET VOLUME 9.2 fL (7.4-10.4); MONOCYTES 2.8 % (2-11); NEUTROPHILS 75.5 % (40-80); RDW 16.5 % (11.5-14.5); WBC 10.7 10x3/uL (4.8-10.8)
[2017-11-23 05:21] LABS: MCV 94.9 fL (80.0-100.0); PLATELET COUNT 428 10x3/uL (130-400)
[2017-11-23 05:43] LABS: ALBUMIN 3.8 g/dL (3.4-5.0); ANION GAP 12.1 mmol/L (8-16); BILIRUBIN - TOTAL 0.43 mg/dL (0.2-1.3); CALCIUM 8.6 mg/dL (8.5-10.1); CARBON DIOXIDE 28.7 mmol/L (21.0-32.0); CREATININE - SERUM 0.9 mg/dL (0.6-1.3); MAGNESIUM - SERUM 2.1 mg/dL (1.8-2.4); PHOSPHOROUS 3.4 mg/dL (2.5-4.9); POTASSIUM - SERUM 3.8 mmol/L (3.5-5.1); PROTEIN - SERUM 7.2 g/dL (6.4-8.2)
[2017-11-23 08:20] VITALS: BP 82/24
[2017-11-23 12:09] VITALS: BP 107/59
[2017-11-23 15:56] VITALS: BP 106/50
[2017-11-23 20:26] VITALS: BP 102/64
[2017-11-24 00:58] VITALS: BP 115/48
[2017-11-24 06:37] LABS: BASOPHILS 0.1 % (0-2); EOSINOPHILS 0.4 % (0-7); HEMATOCRIT 36.8 % (36.0-48.0); IMMATURE GRANULOCYTES 1.3 % (0-5); LYMPHOCYTES 28.6 % (15-50); MCH 30.4 pg (26.0-34.0); MCHC 32.6 g/dL (31.0-37.0); MCV 93.2 fL (80.0-100.0); MEAN PLATELET VOLUME 9.5 fL (7.4-10.4); MONOCYTES 2.9 % (2-11); NEUTROPHILS 66.7 % (40-80); PLATELET COUNT 372 10x3/uL (130-400); RBC 3.95 10x6/uL (4.00-5.40); RDW 16.3 % (11.5-14.5)
[2017-11-24 06:51] VITALS: BP 106/84
[2017-11-24 07:04] LABS: T4 THYROXIN - FREE 0.99 ng/dL (0.76-1.46); THYROID STIMULATING HORMONE 1.29 uIU/mL (0.36-3.74)
[2017-11-24 07:49] LABS: ALBUMIN 3.2 g/dL (3.4-5.0); ANION GAP 11.5 mmol/L (8-16); BILIRUBIN - TOTAL 0.67 mg/dL (0.2-1.3); CALCIUM 8.1 mg/dL (8.5-10.1); CARBON DIOXIDE 27.9 mmol/L (21.0-32.0); MAGNESIUM - SERUM 1.7 mg/dL (1.8-2.4); PHOSPHOROUS 3.1 mg/dL (2.5-4.9); POTASSIUM - SERUM 3.4 mmol/L (3.5-5.1); PROTEIN - SERUM 6.5 g/dL (6.4-8.2)
[2017-11-24 09:20] VITALS: BP 98/50
[2017-11-24 17:32] VITALS: BP 100/68
[2017-11-24 21:59] VITALS: BP 100/81
[2017-11-25 05:24] LABS: BASOPHILS 0.1 % (0-2); EOSINOPHILS 0.1 % (0-7); HEMATOCRIT 32.2 % (36.0-48.0); HEMOGLOBIN 10.6 g/dL (12-16); IMMATURE GRANULOCYTES 1.6 % (0-5); MCH 30.7 pg (26.0-34.0); MCHC 32.9 g/dL (31.0-37.0); MCV 93.3 fL (80.0-100.0); MEAN PLATELET VOLUME 9.4 fL (7.4-10.4); MONOCYTES 3.6 % (2-11); NEUTROPHILS 67.6 % (40-80); PLATELET COUNT 329 10x3/uL (130-400); RBC 3.45 10x6/uL (4.00-5.40); RDW 16.6 % (11.5-14.5); WBC 9.9 10x3/uL (4.8-10.8)
[2017-11-25 06:44] LABS: CALC OSMOLALITY 289 mosm/kg (275-300); CALCIUM 7.9 mg/dL (8.5-10.1); CARBON DIOXIDE 26.8 mmol/L (21.0-32.0); CHLORIDE - SERUM 106 mmol/L (98-107); CREATININE - SERUM 0.8 mg/dL (0.6-1.3); GLUCOSE 112 mg/dL (74-106); MAGNESIUM - SERUM 1.9 mg/dL (1.8-2.4); PHOSPHOROUS 3.8 mg/dL (2.5-4.9); POTASSIUM - SERUM 3.4 mmol/L (3.5-5.1); SODIUM 144 mmol/L (136-145); UREA NITROGEN 18 mg/dL (7-18); eGFR NON AFRICAN AMERICAN 78 mL/min (90-120)
[2017-11-25 07:16] VITALS: BP 101/56
[2017-11-25 08:37] VITALS: BP 98/35
[2017-11-25 09:28] LABS: T4 THYROXINE 6.8 ug/dL (4.7-13.3); THYROID STIMULATING HORMONE 1.09 uIU/mL (0.36-3.74)
[2017-11-25 11:41] VITALS: BP 139/79
[2017-11-25 16:10] VITALS: BP 109/66
[2017-11-25 20:00] VITALS: BP 88/55
[2017-11-26 00:46] VITALS: BP 90/31
[2017-11-26 04:00] VITALS: BP 91/54
[2017-11-26 04:51] LABS: BASOPHILS 0.1 % (0-2); EOSINOPHILS 1.3 % (0-7); HEMATOCRIT 30.4 % (36.0-48.0); HEMOGLOBIN 9.9 g/dL (12-16); IMMATURE GRANULOCYTES 1.4 % (0-5); LYMPHOCYTES 22.8 % (15-50); MCH 30.5 pg (26.0-34.0); MCHC 32.6 g/dL (31.0-37.0); MCV 93.5 fL (80.0-100.0); MEAN PLATELET VOLUME 9.4 fL (7.4-10.4); MONOCYTES 3.1 % (2-11); NEUTROPHILS 71.3 % (40-80); PLATELET COUNT 276 10x3/uL (130-400); RBC 3.25 10x6/uL (4.00-5.40); RDW 16.3 % (11.5-14.5)
[2017-11-26 05:14] LABS: WBC 7.1 10x3/uL (4.8-10.8)
[2017-11-26 05:40] LABS: CALC OSMOLALITY 284 mosm/kg (275-300); CALCIUM 7.7 mg/dL (8.5-10.1); CARBON DIOXIDE 25.8 mmol/L (21.0-32.0); CHLORIDE - SERUM 107 mmol/L (98-107); CREATININE - SERUM 0.6 mg/dL (0.6-1.3); GLUCOSE 94 mg/dL (74-106); POTASSIUM - SERUM 3.7 mmol/L (3.5-5.1); SODIUM 142 mmol/L (136-145); UREA NITROGEN 17 mg/dL (7-18); eGFR NON AFRICAN AMERICAN > 90 mL/min (90-120)
[2017-11-26 07:41] VITALS: BP 94/55
[2017-11-26 10:01] LABS: PHOSPHOROUS 4.4 mg/dL (2.5-4.9)
[2017-11-26 11:06] VITALS: BP 98/53
[2017-11-26 15:52] VITALS: BP 112/33
[2017-11-26 20:00] VITALS: BP 103/67
[2017-11-27 00:44] VITALS: BP 155/86
[2017-11-27 04:00] VITALS: BP 117/77
[2017-11-27 06:43] LABS: BASOPHILS 0.2 % (0-2); EOSINOPHILS 0.2 % (0-7); IMMATURE GRANULOCYTES 0.9 % (0-5); LYMPHOCYTES 16.4 % (15-50); MCH 31.3 pg (26.0-34.0); MCHC 33.1 g/dL (31.0-37.0); MCV 94.5 fL (80.0-100.0); MEAN PLATELET VOLUME 9.3 fL (7.4-10.4); MONOCYTES 3.1 % (2-11); NEUTROPHILS 79.2 % (40-80); RDW 16.2 % (11.5-14.5); WBC 5.4 10x3/uL (4.8-10.8)
[2017-11-27 06:47] LABS: HEMATOCRIT 39.9 % (36.0-48.0); HEMOGLOBIN 13.2 g/dL (12-16); PLATELET COUNT 195 10x3/uL (130-400); RBC 4.22 10x6/uL (4.00-5.40)
[2017-11-27 06:51] LABS: CALC OSMOLALITY 281 mosm/kg (275-300); CALCIUM 8.2 mg/dL (8.5-10.1); CARBON DIOXIDE 21.7 mmol/L (21.0-32.0); CHLORIDE - SERUM 108 mmol/L (98-107); CREATININE - SERUM 0.7 mg/dL (0.6-1.3); GLUCOSE 105 mg/dL (74-106); SODIUM 141 mmol/L (136-145); UREA NITROGEN 15 mg/dL (7-18); eGFR NON AFRICAN AMERICAN > 90 mL/min (90-120)
[2017-11-27 07:55] VITALS: BP 119/70
[2017-11-27 11:28] VITALS: BP 110/57
[2017-11-27 15:30] VITALS: BP 121/61
[2017-11-27 20:38] VITALS: BP 130/77
[2017-11-28 01:42] LABS: APPEARANCE CLOUDY (CLEAR); BILIRUBIN NEGATIVE (NEGATIVE); COLOR YELLOW (YELLOW); GLUCOSE NEGATIVE (NEGATIVE); KETONE NEGATIVE (NEGATIVE); NITRITE POSITIVE (NEGATIVE); PROTEIN 1+ mg/dL (NEGATIVE); SPECIFIC GRAVITY 1.015 (1.005-1.020); UROBILINOGEN NORMAL (NORMAL)
[2017-11-28 01:43] LABS: BACTERIA MANY /hpf (NONE SEEN); EPITHELIAL CELLS 0-5 /hpf (0-5); RED CELLS - URINE 0-5 /hpf (0-5)
[2017-11-28 04:00] VITALS: BP 120/76
[2017-11-28 05:09] LABS: BASOPHILS 0.1 % (0-2); EOSINOPHILS 0 % (0-7); HEMOGLOBIN 10.6 g/dL (12-16); IMMATURE GRANULOCYTES 0.5 % (0-5); LYMPHOCYTES 18.3 % (15-50); MCH 31.5 pg (26.0-34.0); MCHC 33.8 g/dL (31.0-37.0); MCV 93.5 fL (80.0-100.0); MEAN PLATELET VOLUME 9.4 fL (7.4-10.4); MONOCYTES 3.9 % (2-11); NEUTROPHILS 77.2 % (40-80)
[2017-11-28 05:21] LABS: ANION GAP 16.7 mmol/L (8-16); CALCIUM 8.5 mg/dL (8.5-10.1); POTASSIUM - SERUM 3.7 mmol/L (3.5-5.1)
[2017-11-28 05:22] LABS: HEMATOCRIT 31.4 % (36.0-48.0); PLATELET COUNT 302 10x3/uL (130-400); RBC 3.36 10x6/uL (4.00-5.40); WBC 12.2 10x3/uL (4.8-10.8)
[2017-11-28 05:41] LABS: CREATININE - SERUM 0.9 mg/dL (0.6-1.3)
[2017-11-28 06:00] VITALS: BP 167/85
[2017-11-28] MEDS ORDERED: AZULFIDINE500 MG PO (15:02)
[2017-11-28] MEDS ORDERED: QUESTRAN LIG1 PACKET PO (15:04)
[2017-11-28] MEDS ORDERED: NEURONTIN 300300 MG PO (15:04)
[2017-11-28] MEDS ORDERED: LASIX40 MG PO (15:05)
[2017-11-28] MEDS ORDERED: KLOR-CON 1010 MEQ PO (15:06)
[2017-11-28] MEDS ORDERED: PREDNISONE20 MG PO (15:06)
[2017-11-28] MEDS ORDERED: PEPCID AC20 MG PO (15:07)
[2017-11-28] MEDS ORDERED: PACERONE200 MG PO (15:08)
[2017-11-28 17:42] VITALS: BP 120/82
[2017-11-28 20:00] VITALS: BP 120/63
[2017-11-28 21:13] VITALS: BP 120/63
[2017-11-29] VITALS: BP 125/89
[2017-11-29 04:00] VITALS: BP 122/71
[2017-11-29 05:53] LABS: BASOPHILS 0 % (0-2); EOSINOPHILS 0.1 % (0-7); HEMATOCRIT 36.5 % (36.0-48.0); HEMOGLOBIN 12.1 g/dL (12-16); IMMATURE GRANULOCYTES 0.6 % (0-5); LYMPHOCYTES 19.2 % (15-50); MCH 30.8 pg (26.0-34.0); MCHC 33.2 g/dL (31.0-37.0); MCV 92.9 fL (80.0-100.0); MEAN PLATELET VOLUME 9.1 fL (7.4-10.4); MONOCYTES 5.4 % (2-11); NEUTROPHILS 74.7 % (40-80); RBC 3.93 10x6/uL (4.00-5.40); RDW 15.9 % (11.5-14.5)
[2017-11-29 05:55] LABS: PLATELET COUNT 237 10x3/uL (130-400)
[2017-11-29 06:03] LABS: ANION GAP 13.8 mmol/L (8-16); CALCIUM 8.4 mg/dL (8.5-10.1); CARBON DIOXIDE 25.6 mmol/L (21.0-32.0); CREATININE - SERUM 0.9 mg/dL (0.6-1.3); POTASSIUM - SERUM 3.4 mmol/L (3.5-5.1)
[2017-11-29 07:40] VITALS: BP 110/68
[2017-11-29] MEDS ORDERED: PREDNISONE20 MG PO (11:00)
== END 2017-11-29 11:32 | disposition home or self-care (01) | DRG 385 ==
LOC: D.ER 16:20 → D.M2 20:39 → D.EDHOLD 20:39 → D.M2 22:27
PROVIDERS: Emergency Medicine; Family Medicine; Internal Medicine Gastroenterology; Internal Medicine Nephrology; Student in an Organized Health Care Education/Training Program
PROC: 0DB68ZX Excision of Stomach, Via Natural or Artificial Opening Endoscopic, Diagnostic (ICD-10-PCS; 2017-11-11)
PROC: 0DB58ZX Excision of Esophagus, Via Natural or Artificial Opening Endoscopic, Diagnostic (ICD-10-PCS; 2017-11-11)
PROC: 0DBB8ZX Excision of Ileum, Via Natural or Artificial Opening Endoscopic, Diagnostic (ICD-10-PCS; 2017-11-11)
PROC: 0DBN8ZX Excision of Sigmoid Colon, Via Natural or Artificial Opening Endoscopic, Diagnostic (ICD-10-PCS; 2017-11-11)
PROC: 0DBP8ZX Excision of Rectum, Via Natural or Artificial Opening Endoscopic, Diagnostic (ICD-10-PCS; 2017-11-11)
PROC: 0DB98ZX Excision of Duodenum, Via Natural or Artificial Opening Endoscopic, Diagnostic (ICD-10-PCS; principal; 2017-11-11 07:00)
DX: K51.90 Ulcerative colitis, unspecified, without complications (principal); E43 Unspecified severe protein-calorie malnutrition; G93.40 Encephalopathy, unspecified; A09 Infectious gastroenteritis and colitis, unspecified; N39.0 Urinary tract infection, site not specified; E87.1 Hypo-osmolality and hyponatremia; D62 Acute posthemorrhagic anemia; E87.6 Hypokalemia; K21.9 Gastro-esophageal reflux disease without esophagitis; R60.9 Edema, unspecified; K57.90 Diverticulosis of intestine, part unspecified, without perforation or abscess without bleeding; F43.10 Post-traumatic stress disorder, unspecified; F41.9 Anxiety disorder, unspecified; B96.20 Unspecified Escherichia coli [E. coli] as the cause of diseases classified elsewhere; E78.5 Hyperlipidemia, unspecified; G62.9 Polyneuropathy, unspecified; K20.9 Esophagitis, unspecified; K44.9 Diaphragmatic hernia without obstruction or gangrene; K29.70 Gastritis, unspecified, without bleeding; K29.80 Duodenitis without bleeding; K22.2 Esophageal obstruction; K63.5 Polyp of colon; I48.91 Unspecified atrial fibrillation

== ENCOUNTER → 2018-03-27 12:51 | Outpatient (CLI) | payer MEDICARE ==
[2017-11-15 22:46] VITALS: BMI 37.2
[~2018-03-27 12:51] MED LIST: ASCORBIC ACID500 MG PO; AZULFIDINE500 MG PO; CALCIUM 600 +1 EAC3 PO; CARAFATE1 G PO; KLOR-CON 1010 MEQ PO; KRILL OIL 1,001 EAC1 PO; LASIX40 MG PO; MAG-OX 400 MG400 MG PO; NEURONTIN 300300 MG PO; PACERONE200 MG PO; PEPCID AC20 MG PO; PREDNISONE20 MG PO; PROBIOTIC1 EAC1 PO; PROTONIX40 MG PO; QUESTRAN LIG1 PACKET PO; SINGULAIR10 MG PO; VENTOLIN HFA18 GM INH; VITAMIN B-12500 MC1 PO; VITAMIN D2000 UNIT PO; VITAMIN E400 UNI2 PO; XANAX0.5 MG PO; ZANTAC150 MG PO
[2018-03-27 14:09] LABS: ALBUMIN 3.7 g/dL (3.4-5.0); BILIRUBIN - DIRECT 0.13 mg/dL (0.00-0.30); BILIRUBIN - INDIRECT 0.29 mg/dL (0.00-1.00); BILIRUBIN - TOTAL 0.42 mg/dL (0.2-1.3); PROTEIN - SERUM 6.7 g/dL (6.4-8.2)
[2018-03-27 15:04] LABS: HEMATOCRIT 39.1 % (36.0-48.0); HEMOGLOBIN 12.6 g/dL (12-16); LYMPHOCYTES 25.4 % (15-50); MCH 29.1 pg (26.0-34.0); MCHC 32.2 g/dL (31.0-37.0); MCV 90.3 fL (80.0-100.0); MEAN PLATELET VOLUME 9.8 fL (7.4-10.4); PLATELET COUNT 221 10x3/uL (130-400); RBC 4.33 10x6/uL (4.00-5.40); RDW 15.3 % (11.5-14.5); WBC 6.7 10x3/uL (4.8-10.8)
== END | disposition home or self-care (01) ==
LOC: D.LAB 12:51
PROVIDERS: Internal Medicine Gastroenterology
DX: K51.90 Ulcerative colitis, unspecified, without complications (principal); Z51.81 Encounter for therapeutic drug level monitoring; Z79.899 Other long term (current) drug therapy

== ENCOUNTER → 2018-06-05 10:20 | Outpatient (CLI) | payer MEDICARE ==
[2017-11-15 22:46] VITALS: BMI 37.2
== END | disposition home or self-care (01) ==
LOC: D.HCCARDIO 06-04 11:45
PROVIDERS: ATTEND Internal Medicine Cardiovascular Disease
DX: I20.9 Angina pectoris, unspecified (principal)

== ENCOUNTER 2018-06-18 09:41 | Outpatient (CLI) | payer MEDICARE ==
[~2018-06-18] VITALS: Ht 165.1 cm; Wt 91.4 kg
--- NOTE | ~2018-06-18 | HEMODYNAMI ---
PATIENT:SHASTA HANSEN MEDICAL RECORD: [id number] : 58 LOCATION:[facility] ADMISSION DATE: 06/18/18 Generatedon:06/18/201811:24 Patient name: SHASTA HANSEN Patient #: [id number] SSN: : 1960 Date of study: 06/18/2018 Page: Of Hemodynamic Procedure Report Patient Data Patient Demographics Procedure consent was obtained First Name: SHASTA Gender: Female Last Name: TYRONE : 1960 Middle Initial: L Age: 58 year(s) Patient #: [id number] Race: Unknown Additional ID: [id number] Contact details [address]: [address] [place] [address] State: [place] City: [place] Zip code: [address] Admission Admission Data Admission Date: 06/18/2018 Admission Time: 9:41 Procedure Procedure Types Cath Procedure Diagnostic Procedure LHC LHC w/Coronaries Procedure Description Procedure Date Procedure Date: 06/18/2018 Procedure Start Time: 11:13 Procedure End Time: 11:19 Procedure Staff Name Function Rom Lopez MD Performing Physician Concepcion Blum RT Monitor Gustavo Costa RT Scrub Ashwini Estrella RN Nurse Procedure Data Cath Procedure Fluoroscopy Diagnostic fluoroscopy Total fluoroscopy Time: 0.6 time: 0.6 min min Diagnostic fluoroscopy Total fluoroscopy dose: 253 dose: 253 mGy mGy Contrast Material Contrast Material Type Amount (ml) Isovue 300 48 Entry Location Entry Primary Successful Side Size Upsize Upsize Entry Closure Succes sful Closure Location (Fr) 1 (Fr) 2 (Fr) Remarks Device Remarks Femoral Right 5 Fr Exoseal artery Estimated blood loss: 5 ml Diagnostic catheters Device Type Used For End Catheter Placement MULTIPACK Pigtail 5 Fr LV Angiography catheter MULTIPACK JL 4.0 5Fr Left Coronary catheter Angiography MULTIPACK 3DRC 5Fr Right Coronary catheter Angiography Procedure Complications No complications Procedure Medications Medication Administration Route Dosage 0.9% NaCl I.V. 100 ml/hr Oxygen etCO2 Nasal cannula 2 l/min Lidocaine 2% added to field 20 Heparin Flush Bag added to field 2 bags (1000units/500ml NS) Versed I.V. 2 mg Morphine I.V. 2 mg Versed I.V. 2 mg Morphine I.V. 2 mg Versed I.V. 2 mg Hemodynamics Rest Heart Rate: 63 (bpm) Pressure Samples Time Site Value (mmHg) Purpose Heart Use Rate(bpm) 11:15 LV 138/-30,23 Snapshot 87 Snapshots Pre Cath Intra NCS Post Cath Vital Signs Time Heart Resp SPO2 etCO2 NIBP (mmHg) Rhythm Pain Sedation Rate (ipm) (%) (mmHg) Status Level (bpm) 11:01:59 63 13 98 34 114/54(73) NSR 0 (11) 10(A) , No pain 11:06:09 67 18 99 33.2 133/102(112) NSR 0 (11) 10(A) , No pain 11:11:35 68 18 98 31 186/147(180) NSR 0 (11) 10(A) , No pain 11:16:21 69 10 96 33.2 113/97(109) NSR 0 (11) 10(A) , No pain Medications Time Medication Route Dose Verified Delivered Reason Notes Eff ectiveness by by 11:00:50 0.9% NaCl I.V. 100 Rom Ashwini used for ml/hr Jessica Estrella panel lay up worker 11:00:57 Oxygen etCO2 2 Rom Ashwini used for Nasal l/min Jessica Estrella procedure cannula RN 11:01:02 Lidocaine 2% added 20ml Rom Rom for local to vial Jessica Lopez MD anesthetic field 11:01:06 Heparin Flush added 2 Rom Rom used for Bag to bags Jessica Lopez MD procedure (1000units/500ml field NS) 11:07:27 Versed I.V. 2 mg Rom Ashwini for Jessica Estrella sedation RN 11:07:38 Morphine I.V. 2 mg Rom Ashwini for Jessica Estrella sedation RN 11:12:50 Versed I.V. 2 mg Rom Ashwini for Jessica Estrella sedation RN 11:12:56 Morphine I.V. 2 mg Rom Ashwini for Jessica Estrella sedation RN 11:18:05 Versed I.V. 2 mg Rom Ashwini for Jessica MD Sameer sedation chief of hospital medicine Log Time Note 10:40:04 Diagnostic Cath Status : Elective 10:40:31 Concepcion Blum RT(R) sent for patient. Start room use. 10:40:32 Time tracking: Regular hours (M-F 7:00 - 5:00) 10:40:37 Plan of Care:Hemodynamics will remain stable., Cardiac rhythm will remain stable., Comfort level will be maintained., Respiratory function will remain adequate., Patient/ family verbilizes understanding of procedure., Procedure tolerated without complication., Recovers from procedure without complications.. 10:53:57 Patient received from Pre/Post Procedure Room to CCL 1 Alert and oriented. Tansferred to table in Supine position. 10:53:58 Warm blankets applied, and harley hugger turned on for patient comfort. 10:53:58 Correct patient and procedure confirmed by team. 10:54:00 Signed procedure consent form obtained from patient. 10:54:01 ECG and BP/O2 sat monitors applied to patient. 11:00:20 Vital chart was started 11:00:22 Baseline sample Acquired. 11:00:25 Rhythm: sinus rhythm 11:00:28 Full Disclosure recording started 11:00:32 H&P Date Dictated: 06/18/2018 Within 30 days and on chart.. 11:00:33 Pre-procedure instructions explained to patient. 11:00:34 Pre-op teaching completed and patient verbalized understanding. 11:00:35 Family unavailable. 11:00:37 Patient NPO since Midnight. 11:00:50 0.9% NaCl 100 ml/hr I.V. was administered by Ashwini Estrella RN; used for procedure; 11:00:57 Oxygen 2 l/min etCO2 Nasal cannula was administered by Ashwini Estrella RN; used for procedure; 11:00:57 Is the patient allergic to Iodine/contrast media? No. 11:01:01 Is patient on blood thinner?No 11:01:02 Lidocaine 2% 20ml vial added to field was administered by Rom Lopez MD; for local anesthetic; 11:01:03 Patient diabetic? No. 11:01:04 ----Pre-sedation anethsthesia assessment.---- 11:01:06 Heparin Flush Bag (1000units/500ml NS) 2 bags added to field was administered by Rom Lopez MD; used for procedure; 11:01:06 Previous problem with sedation/anesthesia? No ? 11:04:14 Snore? No 11:04:20 Sleep apnea? No 11:04:21 Deviated septum? No 11:04:22 Opens mouth fully? Yes 11:04:23 Sticks out tongue? Yes 11:04:29 Airway obstruction? Yes asthma 11:04:32 Dentures? No ? 11:04:35 Pre procedure: right dorsailis pedis pulse 2+ Normal; easily identifiable; not easily obliterated 11:04:37 Pre procedure: left dorsailis pedis pulse 2+ Normal; easily identifiable; not easily obliterated 11:04:39 Patient pain scale 0/10 ?. 11:04:46 IV patent on arrival in left forearm with 0.9% NaCl at [facility]. 11:04:48 Lab results completed and on chart. 11:04:55 Right groin area was prepped with chlora-prep and draped in sterile fashion 11:04:57 Alarms reviewed by R. N. 11:04:58 Sharps counted by scrub and verified by R.N. 11:05:00 Physician arrived 11:05:00 --------ALL STOP TIME OUT------ 11:05:01 Final Timeout: patient, procedure, and site verified with staff and physician. All members of the team are in agreement. 11:05:02 Right groin site verified by team. 11:05:05 Maximum allowable Isovue 300 dose 300ml. Physician notified. (300ml for normal creatinines. For patients with creatinine of 1.7 or higher multiply weight(kg) x 5 divided by creatinine.) 11:05:14 Fire Safety Assessment: A--An alcohol-based skin anteseptic being used preoperatively., C--Open oxygen or nitrous oxide is being used., D--An ESU, laser, or fiber-optic light is being used. 11:05:31 Physical assessment completed. ASA score P 2 - A patient with mild systemic disease as per Rom Lopez MD. 11:05:35 Sedation plan: IV Moderate Sedation Medication:Versed, Fentanyl 11:05:39 Use device set Femoral Dx 11:05:40 ACIST Syringe (88023) opened to sterile field. 11:05:41 Bag Decanter (2001S) opened to sterile field. 11:05:41 Medline Cath Pack ([id number]) opened to sterile field. 11:05:41 DIAGNOSTIC WIRE .035 260cm J wire (712925) opened to sterile field. 11:05:43 ACIST Hand Control (61955) opened to sterile field. 11:05:43 ACIST Manifold (31836) opened to sterile field. 11:05:43 DIAGNOSTIC Multipack 5Fr catheter set (VB6850) opened to sterile field. 11:05:44 Tegaderm 4 x 4 (1626W) opened to sterile field. 11:05:45 SHEATH 5FR [place] (WYM290) opened to sterile field. 11:07:27 Versed 2 mg I.V. was administered by Ashwini Estrella RN; for sedation; 11:07:38 Morphine 2 mg I.V. was administered by Ashwini Estrella RN; for sedation; 11:12:05 Zero performed for pressure channel P1 11:12:50 Versed 2 mg I.V. was administered by Ashwini Estrella RN; for sedation; 11:12:56 Morphine 2 mg I.V. was administered by Ashwini Estrella RN; for sedation; 11:13:29 Procedure started. 11:13:37 Local anesthetic to right femoral artery with Lidocaine 2% by Rom Lopez MD.INITIAL ACCESS ONLY 11:13:56 A 5 Fr sheath was inserted into the Right Femoral artery 11:14:08 A MULTIPACK Pigtail 5 Fr catheter was advanced over the wire and used for LV Angiography. 11:15:41 LV hemodynamics recorded. 11:15:59 EF : 60 % 11:16:12 A MULTIPACK JL 4.0 5Fr catheter was advanced over the wire and used for Left Coronary Angiography. 11:16:25 LCA angiography performed. 11:16:28 Injector settings: Ml/sec: 3, Volume: 6, 11:17:14 Catheter removed. 11:17:19 A MULTIPACK 3DRC 5Fr catheter was advanced over the wire and used for Right Coronary Angiography. 11:17:35 Injector settings: Ml/sec: 3, Volume: 6, 11:17:38 Catheter removed. 11:17:40 EXOSEAL 5Fr (EX500) opened to sterile field. 11:17:49 Sheath removed intact; hemostasis achieved with Exoseal to the Right Femoral artery. 11:17:51 Procedure ended.(Physican Out) 11:18:05 Versed 2 mg I.V. was administered by Ashwini Estrella RN; for sedation; 11:18:12 Fluoroscopy time 00.60 minutes. 11:18:16 Fluoroscopy dose: 253 mGy 11:18:16 Flurop Dose total: 253 11:18:19 Contrast amount:Isovue 300 48ml. 11:18:21 Sharps counted by scrub and verified by R.N. 11:18:23 Insertion/operative site no bleeding no hematoma. 11:18:26 Post-op/insertion site Right Femoral artery dressed using a 4 x 4 and Tegaderm. 11:18:29 Post right femoral artery:stable 11:18:30 Post Procedure Pulses reassessed and unchanged 11:18:33 Post procedure rhythm: unchanged. 11:18:36 Estimated blood loss: 5 ml 11:18:37 Post procedure instruction explained to patient.Patient verbalizes understanding. 11:18:38 Patient needs reinforcement of post procedure teaching. 11:18:44 Procedure and supply charges have been captured, reviewed, submitted and are correct. 11:18:49 Procedure Complication : No complications 11:18:51 Vital chart was stopped 11:18:52 See physician's report for complete and final results. 11:19:05 Report given to Pre/Post Procedure Room. 11:19:08 Patient transfered to Pre/Post Procedure Room with Stretcher. 11:19:10 Procedure ended. 11:19:10 Full Disclosure recording stopped 11:19:15 End room use (Document Last) Device Usage Item Name Manufacture Quantity Catalog Hospital Part Current Minimal L ot# / Number Charge Number Stock Stock Serial# Code ACIST Acist 1 [id number] [id number] 309667 343084 20 Syringe Medical (33717) Systems Inc Bag Microtek 1 874667 25754 451470 5 Decanter Medical Inc. () Medline Medline 1 [id number] 960824 55240 026870 5 Cath Pack ([id number]) DIAGNOSTIC St Dg 1 901612 771941 143920 859629 30 WIRE .035 260cm J wire (818968) ACIST Hand Acist 1 38729 624345 521762 051953 5 Control Medical (36787) Systems Inc ACIST Acist 1 73571 349334 121410 099863 5 [facility] Medical (06328) Systems Inc DIAGNOSTIC Cardinal 1 JA9474 836572 77009 594407 30 Multipack Health 5Fr catheter set (JI7734) Tegaderm 4 3M 1 1626W 062770 475834 240390 5 x 4 (1626W) SHEATH 5FR Terumo 1 CJJ798 766218 795522 441208 5 [place] (QRE429) MULTIPACK Cardinal 1 274787 5 Pigtail 5 Health Fr catheter MULTIPACK Cardinal 1 448847 5 JL 4.0 5Fr Health catheter MULTIPACK Cardinal 1 198183 5 3DRC 5Fr Health catheter EXOSEAL 5Fr Cardinal 1 EX500 407483 905117 876861 10 (EX500) Health Signature Audit [place] Stage Time Signature Unsigned Intra-Procedure 06/18/2018 Concepcion Blum 11:24:23 AM RT(R) Signatures Monitor : Concepcion Blum RT Signature : Date : Time : [place] [id number] [place] [address]
--- NOTE | ~2018-06-18 | OP ---
PATIENT NAME: SHASTA HANSEN MEDICAL RECORD: [id number] :58 LOCATION:D.CAT ADMISSION DATE: SURGEON: JESUS CHRIS MD DATE OF OPERATION: 06/18/2018 PROCEDURES: 1. Left heart catheterization. 2. Selective coronary angiography. 3. Left ventriculogram. INDICATION: Chest pain compatible with angina. PROCEDURE IN DETAIL: After informed consent was obtained and after a detailed description of the risks, benefits as well as alternative therapies, the patient elected to proceed with angiogram and heart catheterization. The right femoral area was prepped and draped in normal sterile fashion. Right femoral artery was cannulated via modified Seldinger technique with placement of 5-[place]olan sheath. All catheters exchanged through this sheath. FINDINGS: Left ventriculogram was performed in a standard 30-degree SHEN view, reveals good cardiac wall motion throughout all segments. Overall ejection fraction estimated 60%. SELECTIVE CORONARY ANGIOGRAPHY: Left main, left anterior descending, left circumflex, right coronary artery have only moderate irregularities, but no flow-limiting stenosis. OVERALL IMPRESSION: Minimal coronary artery disease is present. No flow-limiting stenosis. Chest pain is noncardiac in etiology. TRANSINT:[id number] Voice Confirmation ID: [id number] DOCUMENT ID: [id number] JESUS CHRIS MD CC: [id number] DICTATION DATE: 06/18/18 1121 CANE FURNITURE MAKER: 06/18/18 1217 DEP CLI 06/18/[address] [facility] [address] [place] [address]
[2018-06-18] MEDS ORDERED: APRISO0.375 GM PO (09:56)
[2018-06-18] MEDS ORDERED: PROPAFENONE HC150 MG PO (09:56)
[2018-06-18] MEDS ORDERED: AMIODARONE HCL200 MG PO (10:01)
[2018-06-18] MEDS ORDERED: ALBUTEROL SULF8.5 GM INH (10:02)
[2018-06-18] MEDS ORDERED: ESTRACE1 MG PO (10:02)
[2018-06-18] MEDS ORDERED: KLOR-CON 1010 MEQ PO (10:03)
[2018-06-18] MEDS ORDERED: PROLIA INJ 660 MG/M1 IJ (10:06)
[2018-06-18 10:14] VITALS: BP 111/60; Ht 165.1 cm; Wt 91.4 kg
[2018-06-18 10:37] LABS: BASOPHILS 0.5 % (0-2); EOSINOPHILS 5.6 % (0-7); HEMATOCRIT 45.3 % (36.0-48.0); HEMOGLOBIN 15.2 g/dL (12-16); IMMATURE GRANULOCYTES 0.2 % (0-5); LYMPHOCYTES 28.5 % (15-50); MCH 31.7 pg (26.0-34.0); MCHC 33.6 g/dL (31.0-37.0); MCV 94.4 fL (80.0-100.0); MEAN PLATELET VOLUME 9.9 fL (7.4-10.4); MONOCYTES 8.4 % (2-11); NEUTROPHILS 56.8 % (40-80); PLATELET COUNT 201 10x3/uL (130-400); RDW 14.8 % (11.5-14.5); WBC 8.6 10x3/uL (4.8-10.8)
[2018-06-18 10:43] LABS: ANION GAP 13.5 mmol/L (8-16); CALCIUM 8.8 mg/dL (8.5-10.1); CARBON DIOXIDE 27.3 mmol/L (21.0-32.0); POTASSIUM - SERUM 3.8 mmol/L (3.5-5.1)
--- NOTE | 2018-06-18 11:30 | NUR ---
PT RECEIVED VIA STRETCHER FROM SEAMING MACHINE OPERATOR FOR RECOVERY. PT DROWSY, VERBALLY AROUSABLE. 5FR EXOCELE TO R GROIN, DRESSING CDI NO BLEEDING OR HEMATOMA NOTED. PEDAL PULSES PALPABLE. IV PATENT INFUSING VIA ORDERS. HR NSR RATE 65, BP 96/45, O2 SAT 99 ON 2L/NC. PT INSTRUCTED TO KEEP HEAD ON PILLOW AND LEG STRAIGHT, PT VERBALIZED UNDERSTANDING. DENIES NEEDS OR PAIN, CALL LIGHT IN REACH
--- NOTE | 2018-06-18 11:45 | NUR ---
PT RESTING COMFORTABLY, VSS, R GROIN DRESSING CDI NO BLEEDING OR SWELLING NOTED TO SITE. R LEG WARM AND PINK. CALL LIGHT IN REACH
--- NOTE | 2018-06-18 12:15 | NUR ---
PT RESTING COMFORTABLY W/O COMPLAINTS. R GROIN DRESSING REMAINS CDI NO BLEEDING OR HEMATOMA NOTED. R PEDAL PULSES PALPABLE. CALL LIGHT IN REACH
--- NOTE | 2018-06-18 12:30 | NUR ---
NO CHANGE IN CONDITION, R GROIN SOFT, NO BLEEDING OR SWELLING NOTED. R LEG WARM AND PINK. VSS, CALL LIGH IN REACH
--- NOTE | 2018-06-18 12:40 | NUR ---
HOB ELEVATED, R GROIN DRESSING REMAINS CDI NO BLEEDING OR SWELLING NOTED. COFFEE GIVEN PER REQUEST. IS CALLING FOR RIDE HOME. DENIES PAIN OR DISCOMFORT. CALL LIGHT IN REACH
--- NOTE | 2018-06-18 13:18 | NUR ---
MONITORS REMOVED, IV DC'D W CATH INTACT. SANDWICH SERVED PER REQUEST. R GROIN DRESSING REMAINS CDI NO BLEEDING OR HEMATOMA NOTED.
--- NOTE | 2018-06-18 13:25 | NUR ---
WILEY REMOVED, PT UP TO DRESS FOR DISCHARGE.
--- NOTE | 2018-06-18 13:47 | NUR ---
PT DISCHARGED VIA WC TO PRIVATE VEHICLE
== END 2018-06-18 13:35 | disposition home or self-care (01) ==
LOC: D.CATH 09:41
PROVIDERS: ATTEND Internal Medicine Interventional Cardiology
DX: R07.89 Other chest pain (principal); Z01.812 Encounter for preprocedural laboratory examination

== ENCOUNTER → 2020-01-05 19:35 | Outpatient (CLI) | payer MEDICARE ==
[2018-06-18 10:14] VITALS: BMI 33.5
[~2020-01-05 19:35] MED LIST changes: +ALBUTEROL SULF8.5 GM INH; +AMIODARONE HCL200 MG PO; +APRISO0.375 GM PO; +ESTRACE1 MG PO; +PROLIA INJ 660 MG/M1 IJ; +PROPAFENONE HC150 MG PO
== END | disposition home or self-care (01) ==
LOC: D.LABREF 19:35
PROVIDERS: ATTEND Orthopaedic Surgery
DX: M17.12 Unilateral primary osteoarthritis, left knee (principal)